=== PATIENT | male | born 1970 | race Caucasian/White ===

== ENCOUNTER → 2020-11-21 | Outpatient (CLI) | payer OTHER ==
[~2020-11-21] MED LIST: AMLO1TAB25 PO; FAMO1TAB11 PO; FOLI1TAB11 PO; HYDR25TAB PO; LOSA100T50 PO; MELO15TA28 PO; METF-838 PO; METO100T5 PO; ROSU20TA5 PO; TAMS1CAP17 PO; UPAD15TA PO
== END ==
LOC: M LABSMTC 12:49
PROVIDERS: ATTEND Anesthesiology
DX: Z01.812 Encounter for preprocedural laboratory examination (principal); Z20.828 Contact with and (suspected) exposure to other viral communicable diseases

== ENCOUNTER 2020-11-26 06:30 | Day surgery (SDC) | payer OTHER ==
[~2020-11-26] VITALS: Ht 180.3 cm; Wt 139.7 kg
[2020-11-26] MEDS ORDERED: NS 1,000 ML IV ONE (07:00)
[2020-11-26] MEDS ORDERED: propofoL 200 MG/20 ML VIAL As Ordered ONE ×2 (07:06→07:40)
[2020-11-26] MEDS ORDERED: LIDOCAINE 2% 100MG/5ML SDV (FOR ANES.) As Ordered ONE (07:06)
--- NOTE | 2020-11-26 07:54 | ROOR ---
Patient Name: Lex Bear Procedure Date: 11/26/2020 7:31 AM Date of : 1970 Age: 50 Room: [facility] Gender: Male Note Status: Finalized Procedure: Colonoscopy Indications: Hematochezia Providers: Compa BARTLETT MD Referring MD: Kristal Craft Requesting Provider: Medicines: Monitored Anesthesia Care Complications: No immediate complications. Procedure: Pre-Anesthesia Assessment: - The anesthesia plan was to use moderate sedation/analgesia (conscious sedation). The Colonoscope was introduced through the anus and advanced to the cecum, identified by appendiceal orifice and ileocecal valve. The colonoscopy was performed without difficulty. The patient tolerated the procedure well. The quality of the bowel preparation was fair and good except the ascending colon was fair and the cecum was unsatisfactory. Findings: The perianal and digital rectal examinations were normal. Two pedunculated polyps were found in the sigmoid colon. The polyps were 6 to 7 mm in size. These polyps were removed with a cold snare. Resection and retrieval were complete. Small Internal Hemorrhoids. The exam was otherwise without abnormality on direct and retroflexion views. Impression: - Preparation of the colon was fair. - Two 6 to 7 mm polyps in the sigmoid colon, removed with a cold snare. Resected and retrieved. - Small Internal Hemorrhoids. - The examination was otherwise normal on direct and retroflexion views. Recommendation: - Repeat colonoscopy in 3 years because the bowel preparation was suboptimal and for surveillance. Procedure Code(s): --- Professional --- 74973, Colonoscopy, flexible; with removal of tumor(s), polyp(s), or other lesion(s) by snare technique Diagnosis Code(s): --- Professional --- K63.5, Polyp of colon K92.1, Melena (includes Hematochezia) CPT copyright 2019 [employer]. All rights reserved. The codes documented in this report are preliminary and upon development administrator review may be revised to meet current compliance requirements. Compa Bartlett MD Compa BARTLETT MD 11/26/2020 7:54:12 AM Electronically signed by Compa BARTLETT MD Number of Addenda: 0 Note Initiated On: 11/26/2020 7:31 AM Estimated Blood Loss: Estimated blood loss: none.
[2020-11-26 08:10] VITALS: BP 141/69
== END 2020-11-26 08:23 | disposition home or self-care (01) ==
LOC: M OPP 06:30
PROVIDERS: ATTEND Internal Medicine Gastroenterology
DX: K92.1 Melena (principal); K63.5 Polyp of colon

== ENCOUNTER 2024-04-11 10:33 | Day surgery (SDC) | payer OTHER ==
[~2024-04-11] VITALS: Ht 180.3 cm; Wt 131.7 kg
[~2024-04-11 10:33] MED LIST changes: +DULA3PEN; +HYDR-3490 PO; -HYDR25TAB PO; +LOSA100T46 PO; -LOSA100T50 PO; -ROSU20TA5 PO; +ROSU20TA61 PO; +TERA10CA3 PO; +XALA0.007
[2024-04-11] MEDS: NS 1,000 ML IV ONE (10:52)
[2024-04-11 12:30] VITALS: BP 144/75; O2SAT 93
[2024-04-11] MEDS ORDERED: propofoL 200 MG/20 ML VIAL As Ordered ONE (12:30)
[2024-04-11] MEDS ORDERED: GLYCOPYRROLATE INJ 0.2 MG/ML 2 ML VIAL As Ordered ONE (12:31)
== END 2024-04-11 12:35 | disposition home or self-care (01) ==
LOC: M OPP 10:33
PROVIDERS: ATTEND Internal Medicine Gastroenterology
DX: Z12.11 Encounter for screening for malignant neoplasm of colon (principal); D12.0 Benign neoplasm of cecum; K64.8 Other hemorrhoids; Z86.010 Personal history of colon polyps